=== PATIENT | female | born 1975 | race Caucasian/White ===

== ENCOUNTER 2019-10-29 11:14 | Emergency (ER) | payer SELFPAY ==
[~2019-10-29] VITALS: Ht 157.5 cm; Wt 68.9 kg
[2019-10-29 11:26] VITALS: Ht 157.5 cm; Wt 68.9 kg
[2019-10-29 13:38] VITALS: BP 111/51
== END 2019-10-29 13:51 | disposition home or self-care (01) ==
LOC: ED 11:14 → EDBD 11:14 → ED 13:51
DX: S93.401A Sprain of unspecified ligament of right ankle, initial encounter (principal); W01.0XXA Fall on same level from slipping, tripping and stumbling without subsequent striking against object, initial encounter; Y93.89 Activity, other specified; Y92.89 Other specified places as the place of occurrence of the external cause; Y99.8 Other external cause status